=== PATIENT | female | born 1990 | race Two or more races ===

== ENCOUNTER 2017-07-29 05:35 | Inpatient (IN) | payer BC, MEDICAID ==
[~2017-07-29] VITALS: Ht 165.1 cm; Wt 89.4 kg
[2017-07-29] MEDS ORDERED: KETOROLAC TROMETH 30 MG/ML 1ML VIAL IV ONE (07:00)
[2017-07-29] MEDS ORDERED: cefTRIAXone 1GM/50ML D5W 50 ML IV ONE (07:00)
[2017-07-29] MEDS ORDERED: SODIUM CHLORIDE 0.9% 1,000 ML IV ONE ×3 (07:00→08:00)
[2017-07-29] MEDS ORDERED: ONDANSETRON HCL 4 MG/2 ML VIAL IV ONE (07:30)
[2017-07-29] MEDS ORDERED: HYDROmorphone HCL 2 MG/ML VL IV ONE (07:30)
[2017-07-29 08:09] LABS: Urine Bilirubin Negative (Negative); Urine Blood 3+ /uL (Negative); Urine Glucose Normal (Normal); Urine Ketone Negative (Negative); Urine Mucus FEW (None Seen); Urine Nitrite Negative (Negative); Urine RBC 676 /hpf (0 - 4); Urine Squamous Epithelial Cell MOD /hpf (<5); Urine Urobilinogen Normal (Negative)
[2017-07-29 08:14] LABS: Urine Color Yellow (Yellow)
[2017-07-29 09:48] LABS: Basophils # (auto) 0 uL; Basophils % (auto) 0.2 % (0.0-2.0); Eosinophils # (auto) 0 uL; Hematocrit 36.1 % (36.0-46.0); Hemoglobin 12.2 g/dL (12.2-16.2); Lymphocytes # (auto) 1.4 uL; Lymphocytes % (auto) 8.5 % (10.0-50.0); Mean Corpuscular Hemoglobin 30.4 pg (28.0-32.0); Mean Corpuscular Hgb Conc. 33.8 g/dL (32.0-36.0); Mean Platelet Volume 7.6 fL (6.9-10.8); Monocytes # (auto) 0.6 uL; Monocytes % (auto) 3.4 % (0.0-12.0); Neutrophils # (auto) 14.4 uL; Neutrophils % (auto) 87.9 % (37.0-80.0); Platelet Count (auto) 254 10^3/uL (140-450); Red Cell Distribution Width 12.6 % (11.8-14.3); White Blood Cell 16.3 10^3/uL (4.4-10.8)
[2017-07-29 10:02] LABS: Albumin 3.7 g/dL (3.4-5.0); BUN/Creatinine Ratio 19.7; Calcium 7.6 mg/dL (8.5-10.1); Potassium 3.8 mmol/L (3.5-5.1)
[2017-07-29 10:04] LABS: Bilirubin, Total 0.2 mg/dL (0.2-1.0)
[2017-07-29] MEDS: SODIUM CHLORIDE 0.9% 1,000 ML IV SCH ×2 (10:59→21:11)
[2017-07-29] MEDS ORDERED: ACETAMINOPHEN 500 MG TAB PO PRN (11:00)
[2017-07-29] MEDS ORDERED: TEMAZEPAM 15 MG CAP PO PRN (11:00)
[2017-07-29] MEDS ORDERED: LORazepam 0.5 MG TAB PO PRN (11:00)
[2017-07-29] MEDS ORDERED: MORPHINE SULF INJ 2 MG/ML SYRINGE 1ML IV PRN (11:00)
[2017-07-29] MEDS ORDERED: PROMETHAZINE HCL 25 MG/ML 1ML IV PRN (11:00)
[2017-07-29] MEDS: FAMOTIDINE (10MG/ML) 2ML VL IV SCH ×2 (11:01→22:38)
[2017-07-29] MEDS ORDERED: IBUP800T24 PO (16:16)
[2017-07-29 16:17] VITALS: BP 101/72
[2017-07-29 17:00] VITALS: BP 101/72
[2017-07-30 01:02] VITALS: BP 102/53
[2017-07-30 04:48] VITALS: BP 92/58
[2017-07-30] MEDS: SODIUM CHLORIDE 0.9% 1,000 ML IV SCH ×2 (06:20→17:46)
[2017-07-30 06:34] LABS: Basophils # (auto) 0.1 uL; Basophils % (auto) 0.7 % (0.0-2.0); Eosinophils # (auto) 0.1 uL; Eosinophils % (auto) 1.3 % (0.0-7.0); Hematocrit 32.3 % (36.0-46.0); Hemoglobin 10.9 g/dL (12.2-16.2); Lymphocytes % (auto) 43.8 % (10.0-50.0); Mean Corpuscular Hemoglobin 30.5 pg (28.0-32.0); Mean Corpuscular Hgb Conc. 33.9 g/dL (32.0-36.0); Mean Corpuscular Volume 89.9 fL (80.0-100.0); Mean Platelet Volume 7.6 fL (6.9-10.8); Monocytes # (auto) 0.5 uL; Monocytes % (auto) 7.3 % (0.0-12.0); Neutrophils # (auto) 3.3 uL; Neutrophils % (auto) 46.9 % (37.0-80.0); Platelet Count (auto) 218 10^3/uL (140-450); Red Cell Distribution Width 12.7 % (11.8-14.3); White Blood Cell 6.9 10^3/uL (4.4-10.8)
[2017-07-30 06:57] LABS: Calcium 7.8 mg/dL (8.5-10.1); Potassium 3.7 mmol/L (3.5-5.1)
[2017-07-30 07:03] LABS: Bilirubin, Total 0.4 mg/dL (0.2-1.0); Total Protein 5.8 g/dL (6.4-8.2)
[2017-07-30 09:00] VITALS: BP 123/69
[2017-07-30] MEDS: HYDROcodone-ACET 5/325MG TAB PO PRN ×2 (09:30→20:30)
[2017-07-30] MEDS: cefTRIAXone 1GM/50ML D5W 50 ML IV SCH (09:30)
[2017-07-30] MEDS ORDERED: HYDROmorphone HCL 2 MG/ML VL IV PRN ×3 (09:45→16:30)
[2017-07-30] MEDS ORDERED: HYDROmorphone HCL 2 MG/ML VL IV ONE (11:00)
[2017-07-30] MEDS: FAMOTIDINE (10MG/ML) 2ML VL IV SCH ×2 (12:32→23:27)
[2017-07-30 12:43] LABS: INR 0.93 (0.9-1.15); Partial Thromboplastin Time 30.3 sec (22.64-33.71); Prothrombin Time 10.1 sec (9.37-12.3)
[2017-07-30 13:00] VITALS: BP 110/69
[2017-07-30] MEDS ORDERED: fentaNYL CITRATE 100 MCG/2 ML VL ONE (15:45)
[2017-07-30] MEDS ORDERED: PROPOFOL 10 MG/ML 20 ML IV ONE (15:45)
[2017-07-30] MEDS ORDERED: MIDAZOLAM HCL 1MG/1ML-2 ML VIAL ONE (15:45)
[2017-07-30] MEDS ORDERED: ePHEDrine SULFATE 50 MG/ML AMP IV PRN (16:30)
[2017-07-30] MEDS ORDERED: ONDANSETRON HCL 4 MG/2 ML VIAL IV ONE (16:30)
[2017-07-30] MEDS ORDERED: hydrALAZINE HCL 20 MG/ML VL IV PRN (16:30)
[2017-07-30] MEDS ORDERED: HYDROmorphone HCL 2 MG/ML VL ONE (16:32)
[2017-07-30 17:43] VITALS: BP 103/62
[2017-07-30 22:07] VITALS: BP 99/43
[2017-07-31 05:00] VITALS: BP 102/49
[2017-07-31 06:23] LABS: Basophils # (auto) 0.1 uL; Basophils % (auto) 0.7 % (0.0-2.0); Eosinophils # (auto) 0.1 uL; Eosinophils % (auto) 0.8 % (0.0-7.0); Hemoglobin 11.3 g/dL (12.2-16.2); Lymphocytes # (auto) 3.6 uL; Lymphocytes % (auto) 42.2 % (10.0-50.0); Mean Corpuscular Hemoglobin 30.6 pg (28.0-32.0); Mean Corpuscular Hgb Conc. 33.3 g/dL (32.0-36.0); Mean Corpuscular Volume 91.9 fL (80.0-100.0); Mean Platelet Volume 7.6 fL (6.9-10.8); Monocytes # (auto) 0.6 uL; Monocytes % (auto) 7.1 % (0.0-12.0); Neutrophils # (auto) 4.2 uL; Neutrophils % (auto) 49.2 % (37.0-80.0); Nucleated Red Blood Cells % 0.2 %; Platelet Count (auto) 226 10^3/uL (140-450); Red Cell Distribution Width 12.8 % (11.8-14.3); White Blood Cell 8.5 10^3/uL (4.4-10.8)
[2017-07-31 06:38] LABS: Calcium 7.9 mg/dL (8.5-10.1); Potassium 3.5 mmol/L (3.5-5.1)
[2017-07-31] MEDS: HYDROcodone-ACET 5/325MG TAB PO PRN ×2 (06:46→12:25)
[2017-07-31] MEDS: SODIUM CHLORIDE 0.9% 1,000 ML IV SCH (06:46)
[2017-07-31 09:00] VITALS: BP 106/66
[2017-07-31] MEDS: cefTRIAXone 1GM/50ML D5W 50 ML IV SCH (09:20)
[2017-07-31 11:08] VITALS: BP 106/66
[2017-07-31] MEDS: FAMOTIDINE (10MG/ML) 2ML VL IV SCH (12:26)
== END 2017-07-31 13:30 | disposition home or self-care (01) | DRG 443 ==
LOC: ER 05:37 → OVERFLOW 05:38 → EDBD 05:38 → CENTRAL 15:50
PROVIDERS: ADMIT Internal Medicine; ATTEND Internal Medicine
PROC: 0T778ZZ Dilation of Left Ureter, Via Natural or Artificial Opening Endoscopic (ICD-10-PCS; 2017-07-30)
PROC: 0TC78ZZ Extirpation of Matter from Left Ureter, Via Natural or Artificial Opening Endoscopic (ICD-10-PCS; principal; 2017-07-30 15:45)
DX: N13.2 Hydronephrosis with renal and ureteral calculous obstruction (principal); E66.9 Obesity, unspecified; N39.0 Urinary tract infection, site not specified; D27.0 Benign neoplasm of right ovary; N13.1 Hydronephrosis with ureteral stricture, not elsewhere classified; E86.0 Dehydration; Z68.32 Body mass index [BMI] 32.0-32.9, adult; Z87.442 Personal history of urinary calculi
CPT/HCPCS: 36415; 74000; 74176; 76000; 76775; 76830; 76856; 80048; 80053; 81001; 81025; 85025; 85610; 85730; 87040; 87086; 96361; 96365; 96375; 99291; J0696; J1885; J2250; J2405; J2704; J3490

== ENCOUNTER 2017-08-21 06:06 | Day surgery (SDC) | payer BC, MEDICAID ==
[2017-08-18 12:58] LABS: Urine Bilirubin Negative (Negative); Urine Blood Negative /uL (Negative); Urine Color Yellow (Yellow); Urine Glucose Normal (Normal); Urine Ketone Negative (Negative); Urine Nitrite Negative (Negative); Urine Urobilinogen Normal (Negative)
[2017-08-18 12:59] LABS: Basophils # (auto) 0.1 uL; Basophils % (auto) 0.6 % (0.0-2.0); Eosinophils # (auto) 0.1 uL; Eosinophils % (auto) 0.5 % (0.0-7.0); Hematocrit 36.1 % (36.0-46.0); Hemoglobin 12.4 g/dL (12.2-16.2); Lymphocytes # (auto) 2.6 uL; Lymphocytes % (auto) 24.7 % (10.0-50.0); Mean Corpuscular Hemoglobin 30.7 pg (28.0-32.0); Mean Corpuscular Hgb Conc. 34.4 g/dL (32.0-36.0); Mean Corpuscular Volume 89.4 fL (80.0-100.0); Mean Platelet Volume 7.7 fL (6.9-10.8); Monocytes # (auto) 0.6 uL; Monocytes % (auto) 5.9 % (0.0-12.0); Neutrophils # (auto) 7.2 uL; Neutrophils % (auto) 68.3 % (37.0-80.0); Nucleated Red Blood Cells % 0.1 %; Platelet Count (auto) 310 10^3/uL (140-450); Red Cell Distribution Width 12.5 % (11.8-14.3); White Blood Cell 10.5 10^3/uL (4.4-10.8)
[2017-08-18 13:14] LABS: INR 0.91 (0.9-1.15); Prothrombin Time 9.9 sec (9.37-12.3)
[2017-08-18 13:36] LABS: Albumin 3.6 g/dL (3.4-5.0); BUN/Creatinine Ratio 17.9; Bilirubin, Total 0.5 mg/dL (0.2-1.0); Calcium 8.6 mg/dL (8.5-10.1); Potassium 3.6 mmol/L (3.5-5.1); Total Protein 7.5 g/dL (6.4-8.2)
[~2017-08-21] VITALS: Ht 165.1 cm; Wt 88.9 kg
[2017-08-21] MEDS ORDERED: SUCCINYLCHOLINE CHLORIDE 20 MG/ML 10ML VIAL IV ONE (06:19)
[2017-08-21] MEDS ORDERED: ROCURONIUM 10MG/ML 10ML VIAL IV ONE (06:26)
[2017-08-21] MEDS ORDERED: MIDAZOLAM HCL 1MG/1ML-2 ML VIAL ONE (06:26)
[2017-08-21] MEDS ORDERED: ONDANSETRON HCL 4 MG/2 ML VIAL ONE (06:26)
[2017-08-21] MEDS ORDERED: PROPOFOL 10 MG/ML 20 ML IV ONE (06:26)
[2017-08-21] MEDS ORDERED: fentaNYL CITRATE 100 MCG/2 ML VL ONE (06:26)
[2017-08-21] MEDS ORDERED: ceFAZolin 1GM/50ML 50 ML IV ONE (06:32)
[2017-08-21] MEDS ORDERED: KETOROLAC TROMETH 30 MG/ML 1ML VIAL IV ONE (07:00)
[2017-08-21] MEDS ORDERED: METOCLOPRAMIDE HCL 5MG/ml INJ 2ml VIAL IV ONE (07:00)
[2017-08-21] MEDS ORDERED: MEPERIDINE HCL (50 MG/ML) 1 ML VIAL ONE (07:13)
[2017-08-21] MEDS ORDERED: GLYCOPYRROLATE 0.2 MG/ML 1ML VIAL ONE (07:31)
[2017-08-21] MEDS ORDERED: NEOSTIGMINE 1 MG/ML INJ (10mg/10ML VIAL) ONE (07:31)
[2017-08-21] MEDS ORDERED: KETOROLAC TROMETH 60MG/2ML VIAL IM ONE (07:31)
[2017-08-21] MEDS: HYDROmorphone HCL 2 MG/ML VL IV PRN ×4 (09:36→10:06)
[2017-08-21] MEDS ORDERED: LACTATED RINGER'S 1,000 ML IV SCH (10:21)
[2017-08-21] MEDS ORDERED: ONDANSETRON HCL 4 MG/2 ML VIAL IV PRN (10:30)
[2017-08-21] MEDS ORDERED: PROMETHAZINE HCL 25 MG/ML 1ML ONE (10:51)
[2017-08-21 11:00] VITALS: BP 122/70
== END 2017-08-21 11:02 | disposition home or self-care (01) ==
LOC: SUR 06:06
PROVIDERS: ATTEND Specialist
DX: N83.201 Unspecified ovarian cyst, right side (principal); N80.0 Endometriosis of uterus; N92.0 Excessive and frequent menstruation with regular cycle; D25.9 Leiomyoma of uterus, unspecified; A74.9 Chlamydial infection, unspecified; N94.4 Primary dysmenorrhea; K66.0 Peritoneal adhesions (postprocedural) (postinfection); D69.6 Thrombocytopenia, unspecified; E66.9 Obesity, unspecified
CPT/HCPCS: 36415; 58558; 58662; 80053; 81003; 84702; 85025; 85610; 85730; 86850; 86900; 86901; 88305; J0330; J0690; J1170; J1885; J2175; J2250; J2405; J2550; J2704; J2765; J3010

== ENCOUNTER 2017-12-10 08:14 | Emergency (ER) | payer BC, MEDICAID ==
[~2017-12-10] VITALS: Ht 165.1 cm; Wt 86.2 kg
[2017-12-10 09:50] LABS: Basophils # (auto) 0 uL; Basophils % (auto) 0.4 % (0.0-2.0); Eosinophils # (auto) 0 uL; Eosinophils % (auto) 0.4 % (0.0-7.0); Hematocrit 35.2 % (36.0-46.0); Hemoglobin 12.1 g/dL (12.2-16.2); Lymphocytes # (auto) 1.9 uL; Lymphocytes % (auto) 21.9 % (10.0-50.0); Mean Corpuscular Hemoglobin 30.2 pg (28.0-32.0); Mean Corpuscular Hgb Conc. 34.4 g/dL (32.0-36.0); Mean Corpuscular Volume 87.8 fL (80.0-100.0); Monocytes # (auto) 0.5 uL; Neutrophils # (auto) 6.1 uL; Neutrophils % (auto) 71.3 % (37.0-80.0); Platelet Count (auto) 268 10^3/uL (140-450); Red Blood Cells 4.01 10^6/uL (4.0-5.20); White Blood Cell 8.5 10^3/uL (4.4-10.8)
[2017-12-10 10:03] LABS: Urine Bacteria NONE SEEN /hpf (None Seen); Urine Blood TRACE /uL (Negative); Urine Hyaline Cast FEW /lpf (0 - 2); Urine Mucus FEW (None Seen); Urine Specific Gravity 1.024 (1.001-1.035); Urine WBC 4 /hpf (0 - 5)
[2017-12-10 10:10] LABS: Albumin 3.4 g/dL (3.4-5.0); BUN/Creatinine Ratio 14.5; Bilirubin, Total 0.4 mg/dL (0.2-1.0); Calcium 8.3 mg/dL (8.5-10.1); Potassium 3.8 mmol/L (3.5-5.1); Total Protein 7.2 g/dL (6.4-8.2)
[2017-12-10 10:32] VITALS: BP 111/51
== END 2017-12-10 11:06 | disposition home or self-care (01) ==
LOC: ER 08:14
DX: O23.41 Unspecified infection of urinary tract in pregnancy, first trimester (principal); Z3A.01 Less than 8 weeks gestation of pregnancy
CPT/HCPCS: 36415; 80053; 81001; 84702; 85025

== ENCOUNTER → 2018-01-07 | Outpatient (CLI) | payer BC, MEDICAID ==
[2018-01-07 09:38] LABS: Basophils # (auto) 0 uL; Basophils % (auto) 0.4 % (0.0-2.0); Eosinophils # (auto) 0 uL; Eosinophils % (auto) 0.5 % (0.0-7.0); Hematocrit 36.9 % (36.0-46.0); Hemoglobin 12.4 g/dL (12.2-16.2); Lymphocytes # (auto) 1.8 uL; Lymphocytes % (auto) 21.3 % (10.0-50.0); Mean Corpuscular Hemoglobin 29.7 pg (28.0-32.0); Mean Corpuscular Hgb Conc. 33.7 g/dL (32.0-36.0); Mean Corpuscular Volume 87.9 fL (80.0-100.0); Monocytes # (auto) 0.4 uL; Monocytes % (auto) 4.5 % (0.0-12.0); Neutrophils # (auto) 6.1 uL; Neutrophils % (auto) 73.3 % (37.0-80.0); Nucleated Red Blood Cells % 0.1 %; Platelet Count (auto) 297 10^3/uL (140-450); Red Cell Distribution Width 12.9 % (11.8-14.3); White Blood Cell 8.3 10^3/uL (4.4-10.8)
[2018-01-07 11:02] LABS: Alcohol, Urine < 3.0 mg/dL (0-5); Amphetamine Screen, Urine NEGATIVE (NEGATIVE); Barbiturate Scree,Urine NEGATIVE (NEGATIVE); Benzodiazephine Screen, Urine NEGATIVE (NEGATIVE); Cannabinoid Screen, Urine NEGATIVE (NEGATIVE); Cocaine Screen, Urine NEGATIVE (NEGATIVE); Opiate Scree,Urine NEGATIVE (NEGATIVE); Phencyclidine Screen, Urine NEGATIVE (NEGATIVE)
[2018-01-08 05:06] LABS: RPR Non Reactive (Non Reactive)
== END | disposition home or self-care (01) ==
LOC: LAB 09:02
PROVIDERS: ATTEND Specialist
DX: Z34.81 Encounter for supervision of other normal pregnancy, first trimester (principal); Z3A.01 Less than 8 weeks gestation of pregnancy; Z20.2 Contact with and (suspected) exposure to infections with a predominantly sexual mode of transmission
CPT/HCPCS: 36415; 80307; 83036; 84702; 85025; 86592; 86703; 86762; 86850; 86900; 86901; 87086; 87340

== ENCOUNTER → 2018-05-12 | Outpatient (CLI) | payer BC | END | disposition home or self-care (01) | LOC: LAB 08:27 | PROVIDERS: ATTEND Specialist | DX: O99.810 Abnormal glucose complicating pregnancy (principal); Z3A.28 28 weeks gestation of pregnancy | CPT/HCPCS: 82951; 82952 ==

== ENCOUNTER → 2018-07-02 | Outpatient (CLI) | payer BC ==
[2018-07-05 10:57] LABS: Basophils # (auto) 0 uL; Basophils % (auto) 0.3 % (0.0-2.0); Eosinophils # (auto) 0 uL; Eosinophils % (auto) 0.5 % (0.0-7.0); Hemoglobin 12.3 g/dL (12.2-16.2); Mean Corpuscular Hemoglobin 29.6 pg (28.0-32.0); Mean Corpuscular Hgb Conc. 33.1 g/dL (32.0-36.0); Mean Corpuscular Volume 89.4 fL (80.0-100.0); Monocytes # (auto) 0.6 uL; Monocytes % (auto) 5.1 % (0.0-12.0); Neutrophils # (auto) 8.4 uL; Neutrophils % (auto) 76.1 % (37.0-80.0); Nucleated Red Blood Cells % 0.1 %; Platelet Count (auto) 263 10^3/uL (140-450); Red Blood Cells 4.14 10^6/uL (4.0-5.20); Red Cell Distribution Width 13.3 % (11.8-14.3)
[2018-07-06 06:06] LABS: RPR Non Reactive (Non Reactive)
== END | disposition home or self-care (01) ==
LOC: LAB 09:59
PROVIDERS: ATTEND Specialist
DX: Z34.80 Encounter for supervision of other normal pregnancy, unspecified trimester (principal); N76.0 Acute vaginitis
CPT/HCPCS: 36415; 85025; 86592; 87081

== ENCOUNTER 2018-07-23 00:24 | Observation (INO) | payer BC ==
[~2018-07-23] VITALS: Ht 165.1 cm; Wt 108.9 kg
[2018-07-23] MEDS ORDERED: PREN27TA7 PO (01:06)
[2018-07-23 01:51] LABS: Urine Bacteria FEW /hpf (None Seen); Urine Blood 2+ /uL (Negative); Urine Mucus FEW (None Seen); Urine Specific Gravity 1.022 (1.001-1.035); Urine WBC 12 /hpf (0 - 5)
== END 2018-07-23 01:27 | disposition home or self-care (01) | DRG 833 ==
LOC: LDRP 00:24
PROVIDERS: ADMIT Obstetrics & Gynecology; ATTEND Obstetrics & Gynecology
DX: O26.893 Other specified pregnancy related conditions, third trimester (principal); N89.8 Other specified noninflammatory disorders of vagina; O62.9 Abnormality of forces of labor, unspecified; O99.333 Smoking (tobacco) complicating pregnancy, third trimester; F17.210 Nicotine dependence, cigarettes, uncomplicated; Z3A.38 38 weeks gestation of pregnancy
CPT/HCPCS: 59025; 81001; 81002; G0378

== ENCOUNTER 2018-07-23 05:42 | Inpatient (IN) | payer BC ==
[~2018-07-23] VITALS: Ht 165.1 cm; Wt 88.5 kg
[~2018-07-23 05:42] MED LIST: PREN27TA7 PO
[2018-07-23] MEDS ORDERED: LACT. RINGERS/OXYTOCIN 20UNITS 1,000 ML IV SCH (06:12)
[2018-07-23] MEDS ORDERED: LIDOCAINE 1% (LOCAL ANESTH.) PF 5ml SDV IJ ONE (06:15)
[2018-07-23] MEDS ORDERED: PENICILLIN G POT 5MIL/D5 50ML 50 ML IV ONE (06:15)
[2018-07-23] MEDS ORDERED: METHYLERGONOVINE MALEATE 0.2 MG/ML AMP IM PRN (06:15)
[2018-07-23] MEDS ORDERED: LACTATED RINGER'S 1,000 ML IV ONE (06:15)
[2018-07-23] MEDS ORDERED: NALBUPHINE HCL 10 MG/1ml INJECTION IM PRN (06:15)
[2018-07-23] MEDS ORDERED: DERMOPLAST 60ML BOTTLE TOP PRN (06:30)
[2018-07-23] MEDS ORDERED: WITCH HAZEL-GLYCERIN PAD TOP PRN (06:30)
[2018-07-23] MEDS ORDERED: PHISODERM TOP SOLN 240ML BTL TOP PRN (06:30)
[2018-07-23 06:46] LABS: Basophils # (auto) 0 uL; Basophils % (auto) 0.2 % (0.0-2.0); Eosinophils # (auto) 0 uL; Eosinophils % (auto) 0.1 % (0.0-7.0); Hematocrit 36.9 % (36.0-46.0); Hemoglobin 12.3 g/dL (12.2-16.2); Lymphocytes # (auto) 1.6 uL; Lymphocytes % (auto) 10.6 % (10.0-50.0); Mean Corpuscular Hemoglobin 29.8 pg (28.0-32.0); Mean Corpuscular Hgb Conc. 33.3 g/dL (32.0-36.0); Mean Corpuscular Volume 89.5 fL (80.0-100.0); Monocytes # (auto) 0.7 uL; Monocytes % (auto) 4.8 % (0.0-12.0); Neutrophils # (auto) 12.5 uL; Neutrophils % (auto) 84.3 % (37.0-80.0); Platelet Count (auto) 240 10^3/uL (140-450); Red Blood Cells 4.12 10^6/uL (4.0-5.20); Red Cell Distribution Width 13.5 % (11.8-14.3); White Blood Cell 14.8 10^3/uL (4.4-10.8)
[2018-07-23 06:58] LABS: Urine Bacteria FEW /hpf (None Seen); Urine Blood 3+ /uL (Negative); Urine Mucus FEW (None Seen); Urine Specific Gravity 1.023 (1.001-1.035); Urine WBC 24 /hpf (0 - 5)
[2018-07-23 07:01] LABS: INR 0.86 (0.9-1.15); Partial Thromboplastin Time 30.8 sec (23.78-33.04); Prothrombin Time 9.3 sec (9.27-12.13)
[2018-07-23 07:09] LABS: Alcohol, Urine < 3.0 mg/dL (0-5); Amphetamine Screen, Urine NEGATIVE (NEGATIVE); Barbiturate Scree,Urine NEGATIVE (NEGATIVE); Benzodiazephine Screen, Urine NEGATIVE (NEGATIVE); Cannabinoid Screen, Urine NEGATIVE (NEGATIVE); Cocaine Screen, Urine NEGATIVE (NEGATIVE); Opiate Scree,Urine NEGATIVE (NEGATIVE); Phencyclidine Screen, Urine NEGATIVE (NEGATIVE)
[2018-07-23 07:10] LABS: Albumin 2.6 g/dL (3.4-5.0); Potassium 3.7 mmol/L (3.5-5.1)
[2018-07-23 07:12] LABS: BUN/Creatinine Ratio 15.1
[2018-07-23 07:14] LABS: Bilirubin, Total 0.3 mg/dL (0.2-1.0); Total Protein 6.6 g/dL (6.4-8.2)
[2018-07-23] MEDS ORDERED: LIDOCAINE 1% HCL (LOCAL ANESTH.) INJ 20ML MDV ONE (07:37)
[2018-07-23] MEDS ORDERED: LACT. RINGERS/OXYTOCIN 20UNITS 500 ML IV ONE (08:15)
[2018-07-23] MEDS ORDERED: ACETAMINOPHEN 325 MG TAB PO PRN (08:30)
[2018-07-23] MEDS ORDERED: ONDANSETRON HCL 4 MG/2 ML VIAL IV PRN (08:30)
[2018-07-23] MEDS ORDERED: LACTATED RINGER'S 1,000 ML IV SCH (09:00)
[2018-07-23 09:14] VITALS: BP 122/56
[2018-07-23] MEDS ORDERED: PENICILLIN G POTASSIUM 2,500,000 UNITS in D5W 5% 50 ML IV SCH (10:15)
[2018-07-23] MEDS: IBUPROFEN 600 MG TAB PO PRN ×3 (10:25→22:36)
[2018-07-23 11:10] VITALS: BP 123/62
[2018-07-23 15:15] VITALS: BP 115/56
[2018-07-23 19:00] VITALS: BP 108/60
[2018-07-23] MEDS ORDERED: INFLUENZA QUAD 2018-2019 0.5 ML SYRG IM ONE (20:00)
[2018-07-23] MEDS ORDERED: TETANUS-DIPTH-ACEL PERTUSSIS 0.5ML SYRG IM ONE (20:00)
[2018-07-23 23:10] VITALS: BP 120/75
[2018-07-24 03:10] VITALS: BP 110/57
[2018-07-24 04:06] LABS: RPR Non Reactive (Non Reactive)
[2018-07-24 07:00] VITALS: BP 115/67
[2018-07-24] MEDS: IBUPROFEN 600 MG TAB PO PRN (07:00)
== END 2018-07-24 11:05 | disposition home or self-care (01) | DRG 807 ==
LOC: OBSVTOIN 05:42 → LDRP 05:42
PROVIDERS: ADMIT Obstetrics & Gynecology; ATTEND Obstetrics & Gynecology
PROC: 10E0XZZ Delivery of Products of Conception, External Approach (ICD-10-PCS; principal; 2018-07-23)
PROC: 0UQMXZZ Repair Vulva, External Approach (ICD-10-PCS; 2018-07-23)
DX: O62.3 Precipitate labor (principal); Z37.0 Single live birth; O99.824 Streptococcus B carrier state complicating childbirth; O77.0 Labor and delivery complicated by meconium in amniotic fluid; O71.82 Other specified trauma to perineum and vulva; Z3A.38 38 weeks gestation of pregnancy; Z23 Encounter for immunization
CPT/HCPCS: 36415; 59025; 59409; 80053; 80307; 81001; 81002; 85025; 85610; 85730; 86592; 86850; 86900; 86901; 90674; 90715; 96365; 96367; 96372; J2001; J2540; J2590; J7060

== ENCOUNTER 2019-03-02 22:54 | Emergency (ER) | payer MEDICAID, BC ==
[~2019-03-02] VITALS: Ht 165.1 cm; Wt 104.3 kg
[2019-03-02 23:41] LABS: Urine WBC None Seen /hpf (0 - 5)
[2019-03-03 00:04] LABS: Urine Bacteria NONE SEEN /hpf (None Seen); Urine Blood 3+ /uL (Negative); Urine Mucus MODERATE (None Seen); Urine Specific Gravity 1.027 (1.001-1.035)
[2019-03-03 01:35] LABS: Basophils # (auto) 0.1 uL; Basophils % (auto) 0.8 % (0.0-2.0); Eosinophils # (auto) 0.2 uL; Eosinophils % (auto) 1.8 % (0.0-7.0); Hematocrit 39.8 % (36.0-46.0); Hemoglobin 13.2 g/dL (12.2-16.2); Lymphocytes # (auto) 4.7 uL; Lymphocytes % (auto) 45.3 % (10.0-50.0); Mean Corpuscular Hemoglobin 29.3 pg (28.0-32.0); Mean Corpuscular Hgb Conc. 33.2 g/dL (32.0-36.0); Mean Corpuscular Volume 88.2 fL (80.0-100.0); Monocytes % (auto) 10.1 % (0.0-12.0); Neutrophils # (auto) 4.4 uL; Nucleated Red Blood Cells % 0.1 %; Platelet Count (auto) 337 10^3/uL (140-450); Red Blood Cells 4.51 10^6/uL (4.0-5.20); Red Cell Distribution Width 13.1 % (11.8-14.3); White Blood Cell 10.4 10^3/uL (4.4-10.8)
[2019-03-03 02:33] LABS: Albumin 3.9 g/dL (3.4-5.0); BUN/Creatinine Ratio 13.2; Calcium 8.7 mg/dL (8.5-10.1); Potassium 3.5 mmol/L (3.5-5.1)
[2019-03-03 02:36] LABS: Bilirubin, Total 0.2 mg/dL (0.2-1.0); Total Protein 7.9 g/dL (6.4-8.2)
[2019-03-03] MEDS ORDERED: cefTRIAXone 1GM/50ML D5W 50 ML IV ONE (07:30)
[2019-03-03] MEDS ORDERED: cefTRIAXone SOD 1,000 MG VL ONE (08:04)
[2019-03-03 08:09] VITALS: BP 112/62
[2019-03-03] MEDS ORDERED: cefTRIAXone W LIDOCAINE 1 GM IM IM ONE (08:15)
== END 2019-03-03 08:55 | disposition home or self-care (01) ==
LOC: ER 22:54
DX: N20.0 Calculus of kidney (principal); N39.0 Urinary tract infection, site not specified
CPT/HCPCS: 36415; 74176; 80053; 81001; 84702; 85025; 96372; 99284; J0696